=== PATIENT | female | born 1955 | race Hispanic/Latino ===

== ENCOUNTER → 2018-12-05 | Day surgery (SDC) | payer MEDICARE ==
[2018-11-30 11:10] LABS: BASOPHILS # (AUTO) 0.1 (0.0-0.1); BASOPHILS % 0.5 % (0.0-1.0); EOSINOPHILS # (AUTO) 0.2 (0.0-0.4); EOSINOPHILS % 1.7 % (0.0-6.0); HEMATOCRIT 33.8 % (34.2-44.1); HEMOGLOBIN 11.6 g/dL (12.0-16.0); LYMPHOCYTES # (AUTO) 2.4 (1.0-3.2); LYMPHOCYTES % 25.4 % (18.0-39.1); MEAN CORPUSCULAR HEMOGLOBIN 29.2 pg (28-32); MEAN CORPUSCULAR HGB CONC 34.3 g/dL (31-35); MEAN CORPUSCULAR VOLUME 85.1 fL (81-99); MONOCYTES # (AUTO) 0.5 (0.2-0.8); MONOCYTES % 5.7 % (4.4-11.3); NEUTROPHILS # (AUTO) 6.2 (2.1-6.9); NEUTROPHILS % 66.4 % (38.7-80.0); PLATELET COUNT 319 x10e3/uL (140-360); RED BLOOD COUNT 3.97 x10e6/uL (3.6-5.1); RED CELL DISTRIBUTION WIDTH 13.2 % (11.7-14.4)
[~2018-12-05] MED LIST: AMLODIPINE BESYL5 MG PO; FENTANYL CITRATE/PF 100MCG/2 ML INJ ONE; HYDROCHLOROTHIA25 MG PO; LEVOTHYROXINE112 MCG PO; LIPITOR20 MG PO; METFORMIN HCL500 MG PO; MIDAZOLAM HCL 2 MG/2 ML VIAL ONE; PROPOFOL IV EMULSION 10 MG/ML 50 ML VIAL ONE
--- OUTSIDE RECORDS SUMMARY | 2018-12-05 05:23 | XMS REPORT ---
[facility] Address Unknown Phone Unavailable Care Team Providers Care Creative Designer Name Role Phone Unavailable Unavailable Payers Payer Name Policy Type Policy Number Effective Date Expiration Date Problems This patient has no known problems. Allergies, Adverse Reactions, Alerts Allergy Name Allergy Type Status Severity Reaction(s) Onset Date Inactive Date Treating Clinician Comments aspirin DA Active U 2016-12-06 00:00:00 penicillin G DA Active U 2016-12-06 00:00:00 Medications This patient has no known medications. Encounters Start Date/Time End Date/Time Encounter Type Admission Type Attending Clinicians [facility] Emergency Department Facility Care Department Encounter ID 2018-03-27 00:00:00 2018-03-27 00:00:00 Outpatient [facility] [id number] 2018-03-23 00:00:00 2018-03-23 00:00:00 Outpatient [facility] [id number] 2018-03-13 11:13:45 2018-03-13 11:13:45 Outpatient [facility] [id number] 2018-03-13 10:49:43 2018-03-13 10:49:43 Outpatient [facility] [id number] 2018-03-13 09:40:39 2018-03-13 09:40:39 Outpatient [facility] [id number] 2018-02-13 00:00:00 2018-02-13 00:00:00 Outpatient [facility] [id number] 2018-01-02 00:00:00 2018-01-02 00:00:00 Outpatient [facility] [id number] 2017-12-27 00:00:00 2017-12-27 00:00:00 Outpatient [facility] [id number] 2017-12-13 00:00:00 2017-12-13 00:00:00 Outpatient [facility] [id number] 2017-12-08 00:00:00 2017-12-08 00:00:00 Outpatient [facility] [id number] 2017-12-07 13:25:08 2017-12-07 13:25:08 Outpatient [facility] [id number] 2017-12-02 00:00:00 2017-12-02 00:00:00 Outpatient [facility] [id number] 2017-10-17 00:00:00 2017-10-17 00:00:00 Outpatient [facility] [id number] 2017-10-13 14:50:01 2017-10-13 14:50:01 Outpatient [facility] [id number] 2017-10-03 00:00:00 2017-10-03 00:00:00 Outpatient [facility] [id number] 2017-08-01 08:55:35 2017-08-01 08:55:35 Outpatient [facility] [id number] 2017-08-01 08:31:16 2017-08-01 08:31:16 Outpatient [facility] [id number] 2017-07-18 07:49:00 2017-07-18 07:49:00 Outpatient [facility] [id number] 2017-07-08 00:00:00 2017-07-08 00:00:00 Outpatient [facility] [id number] 2017-06-13 00:00:00 2017-06-13 00:00:00 Outpatient [facility] [id number] 2017-05-30 15:00:27 2017-05-30 15:00:27 Outpatient [facility] [id number] 2017-05-10 00:00:00 2017-05-10 00:00:00 Outpatient [facility] [id number] 2017-05-09 00:00:00 2017-05-09 00:00:00 Outpatient [facility] [id number] 2017-05-04 00:00:00 2017-05-04 00:00:00 Outpatient [facility] [id number] 2017-05-04 00:00:00 2017-05-04 00:00:00 Outpatient [facility] [id number] 2017-04-26 09:45:12 2017-04-26 09:45:12 Outpatient [facility] [id number] 2017-04-25 15:40:22 2017-04-25 15:40:22 Outpatient [facility] [id number] 2017-03-24 00:00:00 2017-03-24 00:00:00 Outpatient [facility] [id number] 2017-03-09 10:37:22 2017-03-09 10:37:22 Outpatient [facility] [id number] 2017-03-09 09:04:52 2017-03-09 09:04:52 Outpatient [facility] [id number] 2017-03-03 09:13:37 2017-03-03 09:13:37 Outpatient [facility] [id number] 2017-03-03 00:00:00 2017-03-03 00:00:00 Outpatient [facility] [id number] 2017-03-03 00:00:00 2017-03-03 00:00:00 Outpatient [facility] [id number] 2017-03-03 00:00:00 2017-03-03 00:00:00 Outpatient [facility] [id number] 2017-03-03 00:00:00 2017-03-03 00:00:00 Outpatient [facility] [id number] 2017-03-02 00:00:00 2017-03-02 00:00:00 Outpatient [facility] [id number] 2017-03-01 00:00:00 2017-03-01 00:00:00 Outpatient [facility] [id number] 2017-02-15 00:00:00 2017-02-15 00:00:00 Outpatient [facility] [id number] 2017-01-19 00:00:00 2017-01-19 00:00:00 Outpatient [facility] [id number] 2017-01-19 00:00:00 2017-01-19 00:00:00 Outpatient [facility] [id number] 2017-01-19 00:00:00 2017-01-19 00:00:00 Outpatient [facility] [id number] 2016-12-21 00:00:00 2016-12-21 00:00:00 Outpatient [facility] [id number] 2016-12-16 15:31:16 2016-12-16 15:31:16 Outpatient [facility] [id number] 2016-12-09 10:26:12 2016-12-09 10:26:12 Outpatient [facility] [id number] 2016-10-21 10:39:52 2016-10-21 10:39:52 Outpatient [facility] [id number] 2016-10-13 00:00:00 2016-10-13 00:00:00 Outpatient [facility] [id number] 2016-10-01 07:11:32 2016-10-01 07:11:32 Outpatient [facility] [id number] 2016-09-23 00:00:00 2016-09-23 00:00:00 Outpatient [facility] [id number] 2016-09-14 07:58:33 2016-09-14 07:58:33 Outpatient [facility] [id number] 2016-09-14 00:00:00 2016-09-14 00:00:00 Outpatient [facility] [id number] 2016-09-13 11:02:36 2016-09-13 11:02:36 Outpatient [facility] [id number] 2016-09-08 10:35:30 2016-09-08 10:35:30 Outpatient [facility] [id number] 2016-08-30 14:53:46 2016-08-30 14:53:46 Outpatient [facility] [id number] 2016-08-30 10:53:00 2016-08-30 10:53:00 Emergency [facility] [id number] 2016-07-20 08:38:11 2016-07-20 08:38:11 Outpatient [facility] [id number] Results Test Description Test Time Test Comments Text Results Atomic Results Result Comments - CT HEAD/BRAIN W/O CONT 2018-11-03 06:35:00 Name: LEE ANN UNGER [facility] : 1955 Age/S: 63 / F [address] [facility] Unit #: [id number] Loc: ANDREA Olivera [address] Phys: Ana Luisa Felix MD Acct: [id number] Dis Date: Status: REG ER PHONE #: [phone] Exam Date: 11/03/2018 0620 FAX #: [phone] Reason: HEADACHE, HTN EXAMS: CPT CODE: [id number] CT HEAD/BRAIN W/O CONT [id number] AFTER HOURS SERVICE ON: 11/03/2018 6:[address] Scan of the Brain Without Contrast Location Code M12 History: HEADACHE, HTN Technique: Scans were performed on a helical scanner pre IV contrast only. The study is limited secondary to lack of intravenous contrast, particularly for evaluation of masses. One or more of the following dose reduction techniques were used: Automated exposure control, adjustment of the mA and/or kV according to patient size, and/or utilization of iterative reconstruction technique. Findings: There is no hydrocephalus. Basal cisterns are patent. There is no intracranial hyperdense hemorrhage. There is no midline shift or mass effect. No effacement of the medina-white matter junction to indicate acute infarction. There is no skull fracture. Impression: No acute intracranial CT findings. at 0635 Reported and signed by: Elo Castro M.D. CC: Praveen Blanca M.D.; Ana Luisa Felix MD Technologist:ARMANDO COBOS CTDI: DLP: Trnscb Date/Time: 11/03/2018 (35) [email or web address] Orig Print D/T: S: 11/03/2018 (0648) PAGE 1 Signed Report BASIC METABOLIC PANEL 2018-11-03 06:30:00 SODIUM (test code=NA) 137 mmol/L 136-145 POTASSIUM (test code=K) 3.8 mmol/L 3.5-5.1 CHLORIDE (test code=CL) 99.0 mmol/L 98-107 CARBON DIOXIDE (test code=CO2) 29.0 mmol/L 21-32 ANION GAP (test code=GAP) 12.8 10-20 GLUCOSE (test code=GLU) 134 mg/dL 74-106 BLOOD UREA NITROGEN (test code=BUN) 9 mg/dL 7-18 GLOMERULAR FILTRATION RATE (test code=GFR) > 60 mL/min >=60 Estimated GFR by using Modified MDRD formula.Chronic kidney disease is defined as either kidney damageor GFR <60 mL/min/1.73 m2 for >3 months. CREATININE (test code=CREAT) 0.70 mg/dL 0.55-1.02 Note change in reference range due to change in reagent. BUN/CREATININE RATIO (test code=BUN/CREA) 12.2 10-20 CALCIUM (test code=CA) 9.1 mg/dL 8.5-10.1 BASIC METABOLIC [id number] 06:19:00* Test Item Value Reference Range Comments SODIUM (test code=NA) 137 mmol/L 136-145 POTASSIUM (test code=K) 3.8 mmol/L 3.5-5.1 CHLORIDE (test code=CL) 99.0 mmol/L 98-107 CARBON DIOXIDE (test code=CO2) mmol/L 21-32 ANION GAP (test code=GAP) 10-20 GLUCOSE (test code=GLU) mg/dL 74-106 BLOOD UREA NITROGEN (test code=BUN) mg/dL 7-18 GLOMERULAR FILTRATION RATE (test code=GFR) mL/min >=60 CREATININE (test code=CREAT) mg/dL 0.55-1.02 BUN/CREATININE RATIO (test code=BUN/CREA) 10-20 CALCIUM (test code=CA) mg/dL 8.5-10.1 CBC W/AUTO [id number] 06:17:00* Test Item Value Reference Range Comments WHITE BLOOD CELL (test code=WBC) 9.3 K/mm3 4.5-12.5 RED BLOOD CELL (test code=RBC) 3.96 mill/mm3 3.7-5.2 HEMOGLOBIN (test code=HGB) 11.9 gram/dL 11.5-15.5 HEMATOCRIT (test code=HCT) 35.3 % 36.0-46.0 MEAN CELL VOLUME (test code=MCV) 89.1 fL 80-98 MEAN CELL HGB (test code=MCH) 30.1 picogram 27.0-33.0 MEAN CELL HGB CONCETRATION (test code=MCHC) 33.7 gram/dL 33.0-36.0 RED CELL DISTRIBUTION WIDTH (test code=RDW) 12.8 % 11.6-16.2 RED CELL DISTRIBUTION WIDTH SD (test code=RDW-SD) 41.9 fL 37.0-51.0 PLATELET COUNT (test code=PLT) 235 K/mm3 150-450 MEAN PLATELET VOLUME (test code=MPV) 9.5 fL 6.7-11.0 NEUTROPHIL % (test code=NT%) 68.0 % 39.0-69.0 IMMATURE GRANULOCYTE % (test code=IG%) 0.6 % 0.0-5.0 LYMPHOCYTE % (test code=LY%) 24.2 % 25.0-55.0 MONOCYTE % (test code=MO%) 4.9 % 0.0-10.0 EOSINOPHIL % (test code=EO%) 1.9 % 0.0-5.0 BASOPHIL % (test code=BA%) 0.4 % 0.0-1.0 NUCLEATED RBC % (test code=NRBC%) 0.0 % 0-0 NEUTROPHIL # (test code=NT#) 6.28 K/mm3 1.8-7.7 IMMATURE GRANULOCYTE # (test code=IG#) 0.06 x10 3/uL 0-0.03 LYMPHOCYTE # (test code=LY#) 2.24 K/mm3 1.0-5.0 MONOCYTE # (test code=MO#) 0.45 K/mm3 0-0.8 EOSINOPHIL # (test code=EO#) 0.18 K/mm3 0.0-0.5 BASOPHIL # (test code=BA#) 0.04 K/mm3 0.0-0.2 NUCLEATED RBC # (test code=NRBC#) 0.00 K/mm3 0.0-0.1 MANUAL DIFF REQUIRED (test code=MDIFF) NO URINALYSIS [id number] 06:05:00* Test Item Value Reference Range Comments UA COLOR (test code=COLU) Light-Yellow YELLOW UA APPEARANCE (test code=APPU) Cloudy CLEAR UA GLUCOSE DIPSTICK (test code=DGLUU) NEGATIVE mg/dL NEGATIVE UA BILIRUBIN DIPSTICK (test code=BILU) NEGATIVE mg/dL NEGATIVE UA KETONE DIPSTICK (test code=KETU) NEGATIVE mg/dL NEGATIVE UA SPECIFIC GRAVITY (test code=SGU) 1.008 1.001-1.035 UA BLOOD DIPSTICK (test code=KP) 0.03 mg/dL (Trace) mg/dL NEGATIVE UA PH DIPSTICK (test code=ROBINA) 5.0 5.0-8.0 UA PROTEIN DIPSTICK (test code=PROU) NEGATIVE mg/dL NEGATIVE UA UROBILINIOGEN DIPSTICK (test code=URO) Normal mg/dL NEGATIVE UA NITRITE DIPSTICK (test code=DEO) NEGATIVE NEGATIVE UA LEUKOCYTE ESTERASE W REFLEX (test code=LEUUR) 500 Lolis/uL (3+) Lolis/uL NEGATIVE UA WBC (test code=WBCU) 51-100 per HPF 0-5 UA RBC (test code=RBCU) 21-50 #/HPF 0-5 UA EPITHELIAL CELLS (test code=EPIU) FEW per HPF FEW UA BACTERIA (test code=BACU) FEW #/HPF NONE UA HYALINE CAST (test code=HYALU) 3-5 #/LPF 0-5 UA MUCUS (test code=MUCU) FEW #/LPF FEW UA AMORPHOUS SEDIMENT (test code=AMORU) FEW #/LPF NONE Urine Source? Clean Catch
--- NOTE | 2018-12-05 07:15 | NUR ---
SPIRITUAL CARE - Pre-Surgery Assessment: Pt in bed. Pt's daughter at bedside. Pt reported supportive attention from family and friends. Intervention: I provided pastoral presence, hospitality, prayer, and sympathetic listening. 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 Outcome: Pt expressed appreciation for visit. No need for follow up indicated at this time. ANNALEE [facility] Spiritual Care Department O: [phone] Pager: [phone] ([phone] number calling from)
[2018-12-05 08:35] VITALS: BP 132/75
== END | disposition home or self-care (01) ==
LOC: OR 05:00
PROVIDERS: ATTEND Internal Medicine Gastroenterology
DX: K21.0 Gastro-esophageal reflux disease with esophagitis (principal); K29.70 Gastritis, unspecified, without bleeding; K44.9 Diaphragmatic hernia without obstruction or gangrene; B96.81 Helicobacter pylori [H. pylori] as the cause of diseases classified elsewhere; R19.7 Diarrhea, unspecified; E11.9 Type 2 diabetes mellitus without complications; R03.0 Elevated blood-pressure reading, without diagnosis of hypertension; E78.5 Hyperlipidemia, unspecified; Z88.6 Allergy status to analgesic agent; Z88.0 Allergy status to penicillin; Z01.810 Encounter for preprocedural cardiovascular examination; Z01.812 Encounter for preprocedural laboratory examination; Z79.84 Long term (current) use of oral hypoglycemic drugs; Z68.36 Body mass index [BMI] 36.0-36.9, adult
CPT/HCPCS: 36415 ×2; 43239; 82948; 85025; 93005; J2250; J2704; J3010

== ENCOUNTER → 2018-12-12 | Day surgery (SDC) | payer MEDICARE ==
[2018-12-12 08:56] VITALS: BP 129/69
== END | disposition home or self-care (01) ==
LOC: OR 05:59
PROVIDERS: ATTEND Internal Medicine Gastroenterology
DX: Z12.11 Encounter for screening for malignant neoplasm of colon (principal); D12.0 Benign neoplasm of cecum; K64.8 Other hemorrhoids; R13.10 Dysphagia, unspecified; K30 Functional dyspepsia; R19.7 Diarrhea, unspecified; E11.9 Type 2 diabetes mellitus without complications; I10 Essential (primary) hypertension; E78.5 Hyperlipidemia, unspecified; B96.81 Helicobacter pylori [H. pylori] as the cause of diseases classified elsewhere; Z88.6 Allergy status to analgesic agent; Z88.0 Allergy status to penicillin; Z79.84 Long term (current) use of oral hypoglycemic drugs; Z68.36 Body mass index [BMI] 36.0-36.9, adult
CPT/HCPCS: 36415; 45384; 82948; J2250; J2704; J3010; 45378